=== PATIENT | female | born 1990 | race Caucasian/White ===

== ENCOUNTER 2020-09-21 01:04 | Inpatient (IN) | payer MEDICAID, OTHER ==
[2020-09-21] VITALS (13 sets, daily range): BP systolic 101–124; BP diastolic 57–81
[2020-09-21] MEDS ORDERED: ETOMIDATE INJ 20MG/10ML VIAL ONE (01:05)
[2020-09-21] MEDS ORDERED: ROCURONIUM BROMIDE 50 MG/5 ML VIAL ONE (01:05)
[2020-09-21] MEDS ORDERED: NS 1,000 ML IV ONE ×2 (01:30→16:30)
[2020-09-21] MEDS ORDERED: ETOMIDATE INJ 20MG/10ML VIAL IV STA (01:46)
[2020-09-21 01:54] LABS: ABG BASE EXCESS -8.6 (-2.0-2.0); ABG HCO3 16.4 MEQ/L (22.0-26.0); ABG O2 SATURATION 99.4 % (95.0-99.0); ABG PARTIAL PRESSURE CO2 32.9 mmHg (35.0-45.0); ABG PARTIAL PRESSURE O2 199.9 mmHg (75.0-100.0); ABG STANDARD HCO3 17.7 MEQ/L (22.0-26.0); ABG TOTAL CO2 17.4 MEQ/L (22.0-29.0); ABG pH (ARTERIAL) 7.316 UNITS (7.350-7.450)
[2020-09-21 01:54] LABS: BASO % 0.4 % (0.0-1.0); EOS # 0.1 10^3/uL (0.0-0.5); HEMATOCRIT 48.8 % (36.0-47.0); HEMOGLOBIN 15.7 g/dl (12.0-15.5); LYMPH % 28.5 % (24.0-44.0); MEAN CORPUSCULAR HEMOGLOBIN 27.2 pg (27.0-33.0); MEAN CORPUSCULAR HGB CONC 32.2 g/dl (32.0-36.5); MEAN CORPUSCULAR VOLUME 84.4 fl (80.0-96.0); MONO # 0.5 10^3/uL (0.0-0.8); NEUTROPHILS # 4.4 10^3/uL (1.5-8.5); NEUTROPHILS % 62.8 % (36.0-66.0); PLATELET COUNT, AUTOMATED 215 10^3/uL (150-450); RED BLOOD COUNT 5.78 10^6/uL (4.00-5.40)
[2020-09-21] MEDS ORDERED: ROCURONIUM BROMIDE 50 MG/5 ML VIAL IV SCH (02:00)
--- NOTE | 2020-09-21 02:01 | REPVR ---
PROCEDURE INFORMATION: Exam: XR Chest, 1 View Exam date and time: 09/21/2020 1:42 AM Age: 30 years old Clinical indication: Device placement; Ett placement (vent status); Additional info: Post intubation tube placement, and ng TECHNIQUE: Imaging protocol: XR of the chest Views: 1 view. COMPARISON: No relevant prior studies available. FINDINGS: Tubes, catheters and devices: Feeding tube in the stomach, tip is excluded. Endotracheal terminates 2.4 cm above the daria. Lungs: Right upper lobe and suprahilar ground-glass opacity. Pleural spaces: Unremarkable. No pleural effusion. No pneumothorax. Heart/Mediastinum: Unremarkable. Bones/joints: Unremarkable. IMPRESSION: Right upper lobe and suprahilar ground-glass opacity. Feeding tube in the stomach, tip is excluded. Endotracheal terminates 2.4 cm above the daria. Electronically signed by: Simeon Hudson On 09/21/2020 02:01:10 AM
[2020-09-21 02:25] LABS: AMPHETAMINES LEVEL URINE NEGATIVE (NEGATIVE); BARBITURATES URINE NEGATIVE (NEGATIVE); BENZODIAZEPINES URINE NEGATIVE (NEGATIVE); CANNABINOIDS URINE NEGATIVE (NEGATIVE); COCAINE METABOLITE URINE NEGATIVE (NEGATIVE); METHADONE URINE NEGATIVE (NEGATIVE); OPIATES URINE NEGATIVE (NEGATIVE); PHENCYCLIDINE URINE NEGATIVE (NEGATIVE)
[2020-09-21 02:39] LABS: HCG, SERUM QUALITATIVE NEGATIVE (NEGATIVE)
[2020-09-21] MEDS: propofoL 1,000 MG in IV 1 EA IV SCH ×5 (02:45→23:04)
[2020-09-21 03:22] LABS: RSV AMPLIFICATION NEGATIVE (NEGATIVE)
[2020-09-21 03:25] LABS: ACETAMINOPHEN LEVEL < 2.0 UG/ML (10.0-30.0); ALBUMIN 4.1 GM/DL (3.2-5.2); ALT/SGPT 22 U/L (12-78); BILIRUBIN,DIRECT < 0.1 MG/DL (0.0-0.2); BILIRUBIN,TOTAL 0.2 MG/DL (0.2-1.0); BLOOD UREA NITROGEN 7 MG/DL (7-18); CALCIUM LEVEL 8.3 MG/DL (8.5-10.1); CARBON DIOXIDE LEVEL 25 MEQ/L (21-32); CHLORIDE LEVEL 106 MEQ/L (98-107); CPK CREATINE PHOSPHOKINASE 86 U/L (26-192); CREATININE FOR GFR 0.71 MG/DL (0.55-1.30); ETHYL ALCOHOL (ETHANOL) 0.516 % (0.000-0.010); GLOMERULAR FILTRATION RATE > 60.0 (>60); GLUCOSE, FASTING 107 MG/DL (70-100); POTASSIUM SERUM 3.4 MEQ/L (3.5-5.1); SALICYLATE LEVEL 2.1 MG/DL (5.0-30.0); SODIUM LEVEL 139 MEQ/L (136-145); TOTAL PROTEIN 8.2 GM/DL (6.4-8.2)
[2020-09-21 03:39] LABS: ABG BASE EXCESS -8.7 (-2.0-2.0); ABG HCO3 15.7 MEQ/L (22.0-26.0); ABG O2 SATURATION 99.1 % (95.0-99.0); ABG PARTIAL PRESSURE CO2 30.4 mmHg (35.0-45.0); ABG PARTIAL PRESSURE O2 208.2 mmHg (75.0-100.0); ABG STANDARD HCO3 17.7 MEQ/L (22.0-26.0); ABG TOTAL CO2 16.7 MEQ/L (22.0-29.0); ABG pH (ARTERIAL) 7.332 UNITS (7.350-7.450)
[2020-09-21] MEDS ORDERED: MULTIVITAMIN -ADULT INJECTION 10 ML, THIAMINE INJection 100 MG, FOLIC ACID 1 MG in NS 1... IV ONE (04:30)
[2020-09-21] MEDS: IPRATROPIUM 0.5MG/ALBUTEROL 2.5MG INH SOL UD 3ML (DUONEB) NEB SCH ×3 (09:01→16:01)
--- NOTE | 2020-09-21 09:17 | HPE ---
HISTORY AND PHYSICAL/CRITICAL CARE NOTE DATE OF ADMISSION: 09/21/2020 START TIME: 749 STOP TIME: 833 HISTORY OF PRESENT ILLNESS: I was called to the ER to emergently attend Alla Lobo. The patient's admitting exam and chart reviewed and I spoke at length with the ER staff regarding her. In essence, this is a 30-year-old female heavily intoxicated after drinking all day yesterday. She was dropped off at a local police station by friends. In the ER she was unable to control her secretions and was therefore intubated. First blood gas had a pH of 7.316 with a pCO2 of 32.9, pO2 199. Chest x-ray showed OG tube and endotracheal tube in good position. She did not require vasopressors. I was called for admission. MEDICATIONS ADMINISTERED IN THE ER: 1. Multivitamins. 2. Propofol. 3. Norcuron. 4. Etomidate. No other history is able to be obtained. LIST OF HOME MEDICATIONS: Unobtainable. She has had no prior [facility] admissions. FAMILY HISTORY/SOCIAL HISTORY: Unobtainable. PHYSICAL EXAMINATION: GENERAL: A young female, intubated, sedated, mechanically ventilated. VITAL SIGNS: Heart rate 110, blood pressure 92 systolic. She breathes with the ventilator. HEENT: Pupils react. Sclerae are clear. Trachea is in the midline. Membranes are moist. CHEST: Chest is clear to both auscultation and percussion, symmetric expansion, No significant focal adventitious breath sounds are identified. Tactile fremitus palpable throughout. CARDIAC EXAM: Regular with no gallop. Peripheral pulses are palpable with no edema. ABDOMEN: Soft with active bowel sounds. No convincing organomegaly or masses. EXTREMITIES: Extremities without cyanosis or clubbing. NEUROLOGIC: She is sedate but does move all extremities when stimulated. Chest x-ray as outlined above. Most recent other laboratories show a blood gas done at 0321 has a pH of 7.332, pCO2 of 30.4, PaO2 208. Repeat done at 0648 has a pH of 7.347, pCO2 of 33.6, PaO2 of 199. Sodium 139, K 3.4, chloride 106, CO2 25, BUN 7, creatinine 0.71, glucose 107. White blood cell count is 7.0, hemoglobin 15.7, platelet count 215,000. No left shift. Tox screen shows an ETOH of 0.516. MOST PRESSING PROBLEMS REQUIRING MY PRESENCE AT THE BEDSIDE: 1. Respiratory failure secondary to heavy alcohol intoxication. 2. Alcohol intoxication. RECOMMENDATIONS: At this point she will be supported with IV fluids as well as mechanical ventilatory support for now and sedation as needed. My suspicion is either late today or more likely early tomorrow we will be able to extubate her. The issue at that point in time will be ascertaining whether or not she has a chronic issue. I see no evidence of aspiration. Ulcer and DVT prophylaxis are ordered. In view of the above, she is critically ill. We will facilitate moving to the Intensive Care Unit. YUNIEL
[2020-09-21 10:35] LABS: ABG BASE EXCESS -6.4 (-2.0-2.0); ABG HCO3 19.8 MEQ/L (22.0-26.0); ABG O2 SATURATION 95.6 % (95.0-99.0); ABG PARTIAL PRESSURE CO2 41.8 mmHg (35.0-45.0); ABG PARTIAL PRESSURE O2 87.8 mmHg (75.0-100.0); ABG STANDARD HCO3 19.3 MEQ/L (22.0-26.0); ABG TOTAL CO2 21.1 MEQ/L (22.0-29.0); ABG pH (ARTERIAL) 7.293 UNITS (7.350-7.450)
[2020-09-21] MEDS: CHLORHEXIDINE GLUCONATE 0.12 % 15ML UDC (PERIDEX ORAL RINSE) MT SCH ×2 (10:41→21:24)
[2020-09-21] MEDS: MIDAZOLAM INJ 2MG/2ML VIAL (J2250 PER 1MG) IV PRN ×7 (14:04→23:01)
[2020-09-21] MEDS: HEPARIN SOD (PORCINE) 5000UNITS/ML 1ML VIAL/SYRINGE SC SCH ×2 (14:10→21:24)
[2020-09-21] MEDS: KCL 20MEQ IN D5/0.45NS 1000ML 1,000 ML IV SCH ×2 (14:11→15:10)
[2020-09-21] MEDS ORDERED: REFRIGERATOR IV KEYS XX PRN (16:30)
[2020-09-21] MEDS ORDERED: MIDAZOLAM HCL 100 MG in D5W 80 ML IV SCH (17:00)
[2020-09-21] MEDS: OXAZEPAM 15 MG CAP PO SCH ×2 (17:08→21:24)
[2020-09-21] MEDS ORDERED: SODIUM CHLORIDE 0.9% 1000ML IV ONE (19:15)
[2020-09-21 21:30] LABS: ABG BASE EXCESS -7.6 (-2.0-2.0); ABG HCO3 16.8 MEQ/L (22.0-26.0); ABG O2 SATURATION 98.6 % (95.0-99.0); ABG PARTIAL PRESSURE CO2 31.2 mmHg (35.0-45.0); ABG PARTIAL PRESSURE O2 127.7 mmHg (75.0-100.0); ABG STANDARD HCO3 18.4 MEQ/L (22.0-26.0); ABG TOTAL CO2 17.8 MEQ/L (22.0-29.0); ABG pH (ARTERIAL) 7.349 UNITS (7.350-7.450)
[2020-09-21] MEDS: NS 1,000 ML IV SCH (23:00)
[2020-09-22] VITALS (18 sets, daily range): BP systolic 105–144; BP diastolic 62–84
[2020-09-22] MEDS: IPRATROPIUM 0.5MG/ALBUTEROL 2.5MG INH SOL UD 3ML (DUONEB) NEB SCH ×3 (00:27→07:30)
[2020-09-22] MEDS: MIDAZOLAM INJ 2MG/2ML VIAL (J2250 PER 1MG) IV PRN ×2 (00:49→05:14)
[2020-09-22] MEDS: propofoL 1,000 MG in IV 1 EA IV SCH ×3 (01:47→07:52)
[2020-09-22] MEDS: KCL 20MEQ IN D5/0.45NS 1000ML 1,000 ML IV SCH ×2 (01:52→16:48)
[2020-09-22 05:29] LABS: ABG BASE EXCESS -5.3 (-2.0-2.0); ABG HCO3 18.7 MEQ/L (22.0-26.0); ABG O2 SATURATION 98.2 % (95.0-99.0); ABG PARTIAL PRESSURE CO2 31.8 mmHg (35.0-45.0); ABG PARTIAL PRESSURE O2 116.6 mmHg (75.0-100.0); ABG STANDARD HCO3 20.1 MEQ/L (22.0-26.0); ABG TOTAL CO2 19.7 MEQ/L (22.0-29.0); ABG pH (ARTERIAL) 7.388 UNITS (7.350-7.450)
[2020-09-22 05:37] LABS: BASO % 0.2 % (0.0-1.0); HEMATOCRIT 35.5 % (36.0-47.0); LYMPH # 2.1 10^3/uL (1.5-5.0); LYMPH % 25.1 % (24.0-44.0); MEAN CORPUSCULAR HEMOGLOBIN 27.4 pg (27.0-33.0); MEAN CORPUSCULAR HGB CONC 31.5 g/dl (32.0-36.5); MEAN CORPUSCULAR VOLUME 86.8 fl (80.0-96.0); NEUTROPHILS # 5.2 10^3/uL (1.5-8.5); NEUTROPHILS % 62.5 % (36.0-66.0); PLATELET COUNT, AUTOMATED 170 10^3/uL (150-450); RED BLOOD COUNT 4.09 10^6/uL (4.00-5.40)
[2020-09-22 05:38] LABS: HEMOGLOBIN 11.2 g/dl (12.0-15.5); WHITE BLOOD COUNT 8.3 10^3/uL (4.0-10.0)
[2020-09-22 06:18] LABS: ALBUMIN 2.7 GM/DL (3.2-5.2); ALT/SGPT 23 U/L (12-78); BILIRUBIN,TOTAL 0.2 MG/DL (0.2-1.0); BLOOD UREA NITROGEN 6 MG/DL (7-18); CALCIUM LEVEL 6.8 MG/DL (8.5-10.1); CARBON DIOXIDE LEVEL 20 MEQ/L (21-32); CHLORIDE LEVEL 116 MEQ/L (98-107); CHOLESTEROL LEVEL 120 MG/DL (< 200); CPK CREATINE PHOSPHOKINASE 55 U/L (26-192); CREATININE FOR GFR 0.58 MG/DL (0.55-1.30); GLOMERULAR FILTRATION RATE > 60.0 (>60); GLUCOSE, FASTING 107 MG/DL (70-100); LDH LACTATE DEHYDROGENASE 164 U/L (84-246); PHOSPHORUS LEVEL 2.6 MG/DL (2.5-4.9); POTASSIUM SERUM 3.8 MEQ/L (3.5-5.1); SODIUM LEVEL 145 MEQ/L (136-145); TOTAL PROTEIN 5.8 GM/DL (6.4-8.2); TRIGLYCERIDES LEVEL 95 MG/DL (<150)
[2020-09-22] MEDS: HEPARIN SOD (PORCINE) 5000UNITS/ML 1ML VIAL/SYRINGE SC SCH (06:42)
[2020-09-22] MEDS: NS 1,000 ML IV SCH ×3 (06:42→18:25)
[2020-09-22] MEDS: OXAZEPAM 15 MG CAP PO SCH ×3 (06:42→21:04)
--- NOTE | 2020-09-22 07:58 | REP ---
INDICATION: resp failure COMPARISON: None. TECHNIQUE: Portable AP view of the chest FINDINGS: Endotracheal tube 2.5 cm above the daria. Nasogastric tube courses below left hemidiaphragm in satisfactory position. The mediastinum and cardiac silhouette are stable and within normal limits for portable technique. The lung devine are clear without acute consolidation, effusion, or pneumothorax. Skeletal structures are intact. IMPRESSION: No acute cardiopulmonary process appreciated. <Electronically signed by Anastacio Costa > 09/22/20 [id number]
--- NOTE | 2020-09-22 08:42 | ECGEPIP ---
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
[2020-09-22] MEDS ORDERED: FOLIC ACID 1 MG in NS 50 ML IV SCH ×2 (09:00→12:00)
[2020-09-22] MEDS ORDERED: THIAMINE 200MG/2ML VIAL (J3411 PER 100MG) IV SCH (09:00)
--- NOTE | 2020-09-22 09:52 | CCN ---
CRITICAL CARE NOTE DATE: 09/22/2020 START TIME: 0800 STOP TIME: 08 SUBJECTIVE: I again attended Alla Lobo here in the Intensive Care Unit. The patient has been examined, chart reviewed, and I have spoken at length with the nurse at the bedside. OBJECTIVE: Vital signs: T-max overnight 99.7, blood pressure 105 over 120s. Heart rate remains in the 120s with a sinus mechanism. She does over-breathe the ventilator. Input and output midnight to midnight: 3,823 mL in with 4,550 mL out. Her input since midnight is not accurately recorded. Other laboratories show a white blood cell count 8.3, hemoglobin 11.2, platelet count 170,000, 62% segs, no bands. Sodium 145, K 3.8, chloride 116, CO2 20, BUN 6, creatinine 0.58, glucose 107. Albumin 2.7. Blood gas done this morning had an SIMV 14, tidal volume 400, PEEP of 5, pressure support of 10 and FiO2 of 21%. She has a pH of 7.388, pCO2 31.8, PaO2 of 116.6. Chest x-ray done this morning shows the endotracheal tube to be in good position. There are no obvious infiltrates. On exam she is sedate. Pupils react. Sclerae clear. Trachea is in the midline. Chest is clear to both auscultation and percussion. No significant focal adventitious sounds identified. Cardiac exam remains tachycardic but regular. Peripheral pulses palpable, no edema. Abdomen is soft with active bowel sounds, no obvious organomegaly or masses. Extremities with no cyanosis or clubbing. Neurologically she is sedate. MOST PRESSING PROBLEM REQUIRING MY PRESENCE AT THE BEDSIDE: Respiratory failure secondary to profound alcohol intoxication. PLAN: At this point we will stop her sedation and allow her to wake up and hopefully be extubated. She did have a mild metabolic acidosis with some residual with that but has responded nicely to IV hydration. Certainly the diuretic effect of the alcohol she drank certainly complicated that. She was quite cool at the time of admission as well. My hope is that she will be cooperative when she is awakened. Due to what are obviously alcohol issues, we did start Serax yesterday as we have no adequate history of how much she drinks on a regular basis. She did receive thiamine with her first IV bag. Hopefully if she cooperative we will continue that as a dietary supplement for her. Hopefully when she is extubated, we can talk to her more as to what her usual habits are as given her young age, my hope is that if she has a significant issue, she is at least amenable to rehab. We will proceed as outlined above. I left the bedside at 0835 hours. Thirty five minutes of critical care time were spent at the bedside not including procedures. YUNIEL
--- NOTE | 2020-09-22 12:53 | IPNPDOC ---
Date Seen The patient was seen on 09/22/20. Progress Note SUBJECTIVE: Successfully extubated this AM, following commands but lethargic. Tachycardic, U/O 30-60 mL/Hr. Labs unremarkable. Denies chest pain, shortness of breath but complains of sore throat. OBJECTIVE: VITAL SIGNS: Please see below PHYSICAL EXAMINATION: VS: Please see below CONSTITUTIONAL: No acute distress, resting comfortably, AAO x 3 EYES: PERRLA, EOM intact HENT, MOUTH: Normocephalic, atraumatic, moist mucous membranes NECK: SUPPLE, no JVD, no lymphadenopathy, no carotid bruit CV: tachycardic, sinus rhythm, S1S2 normal, no murmurs/rubs/gallops RESPIRATORY: Clear to auscultation bilaterally, no rales/rhonchi/wheezes GI: BS positive in 4 quadrants, soft, nontender, nondistended, no rebound or guarding, no organomegaly : Deferred MUSCULOSKELETAL: Normal ROM. No cyanosis, clubbing, swelling, joint deformity, extremity edema INTEGUMENTARY: Intact, no rashes, no lesions, no erythema NEUROLOGIC: Cranial Nerves II-XII are intact, no focal deficits CURRENT MEDICATIONS: Please see below LABORATORY DATA: Please see below IMAGING: CXR 09/22/20: No acute CP process. ASSESSMENT: 30 y/o F admitted to ICU for acute respiratory failure 2/2 to alcohol intoxication, successfully extubated, monitoring closely for likely alcohol withdrawl and dehydration. PLAN: Respiratory failure secondary to heavy alcohol intoxication -Currently saturating well on aerosolized mask, FiO2 20% -ABG improved -Extubated 09/22/20 without complication -Lungs CTAB -Repeat CXR today, see above -Monitoring closely, continue to wean off. Can add levalbuterol PRN Alcohol withdrawl -On admission ETOH >0.5 -Tachycardic currently, HR up to 130's at times -C/w serax ATC, CIWA protocol: MV, thiamine and folate, ativan PRN -Tele Dehydration likely 2/2 to alcohol intoxication -C/w NS and D5 1/2 NSS with KCl for now -Repeat BMP this afternoon to discuss stopping one fluid -F/u labs DVT px -Lovenox DISPOSITION: Extubated today, still in ICU. Seems much improved. PT/OT likely , OOBTC, OOB with meals. TOTAL AMOUNT OF ICU TIME SPENT CARING FOR PATIENT (nonprocedural): 50 mins VS, I&O, 24H, Fishbone Vital Signs/I&O Vital Signs Date Time Temp Pulse Resp B/P (MAP) Pulse Ox O2 Delivery O2 Flow Rate FiO2 09/22/20 10:00 112 20 118/77 (91) 100 Aerosol Mask 5.0 28 09/22/20 08:00 98.6 I&O- Last 24 Hours up to 6 AM 09/22/20 05:59 Intake Total 3428 ml Output Total 2935 ml Balance 493 ml Laboratory Data 24H LABS Laboratory Tests 2 09/21/20 21:13: Blood Gas Bicarbonate Standard 18.4L, Arterial Blood pH 7.349L, Arterial Blood Partial Pressure CO2 31.2L, Arterial Blood Partial Pressure O2 127.7H, Arterial Blood Total CO2 17.8L, Arterial Blood HCO3 16.8L, Arterial Blood Base Excess - 7.6L, Arterial Blood Oxygen Saturation 98.6 09/22/20 05:10: Immature Granulocyte % (Auto) 0.2, Neutrophils (%) (Auto) 62.5, Lymphocytes (%) (Auto) 25.1, Monocytes (%) (Auto) 12.0H, Eosinophils (%) (Auto) 0.0, Basophils (%) (Auto) 0.2, Neutrophils # (Auto) 5.2, Lymphocytes # (Auto) 2.1, Monocytes # (Auto) 1.0H, Eosinophils # (Auto) 0.0, Basophils # (Auto) 0.0, Nucleated Red Blood Cells % (auto) 0.0, Anion Gap 9, Glomerular Filtration Rate > 60.0, Calcium Level 6.8#L, Phosphorus Level 2.6, Total Bilirubin 0.2, Aspartate Amino Transf (AST/SGOT) 13, Alanine Aminotransferase (ALT/SGPT) 23, Alkaline Phosp hatase 47, Lactate Dehydrogenase 164, Total Creatine Kinase 55, Total Protein 5.8#L, Albumin 2.7#L, Albumin/Globulin Ratio 0.9L, Triglycerides Level 95, Cholesterol Level 120 09/22/20 05:20: Blood Gas Bicarbonate Standard 20.1L, Arterial Blood pH 7.388, Arterial Blood Partial Pressure CO2 31.8L, Arterial Blood Partial Pressure O2 116.6H, Arterial Blood Total CO2 19.7L, Arterial Blood HCO3 18.7L, Arterial Blood Base Excess - 5.3L, Arterial Blood Oxygen Saturation 98.2 CBC/BMP Laboratory Tests 09/22/20 05:10 Current Medications Current Medications Medications (Trade) Dose Ordered Sig/Brien Route PRN Reason Start Time Stop Time Status Last Admin Dose Admin Albuterol/ Ipratropium (Duoneb (Ipr 0.5mg/Alb 2.5mg)) 3 ml RQ4H NEB 09/21/20 08:00 09/22/20 09:12 DC 09/22/20 07:30 Chlorhexidine Gluconate (Peridex Oral Rinse) 15 ml BID MT 09/21/20 09:00 09/22/20 09:47 DC 09/21/20 21:24 Etomidate (Amidate) 20 mg STAT STAT IV 09/21/20 01:46 09/21/20 01:48 DC 09/21/20 02:43 Folic Acid 1 mg/ Sodium Chloride 50.2 ml @ 100.4 mls/ hr Q24H IV 09/22/20 09:00 09/22/20 09:02 DC Folic Acid 1 mg/ Sodium Chloride 50.2 ml @ 100.4 mls/ hr Q24H IV 09/22/20 12:00 09/22/20 12:17 Heparin Sodium (Porcine) (Heparin) 5,000 units Q8H SC 09/21/20 14:00 09/22/20 06:42 Home Med (Med Rec Complete!) ASDIRECTED XX 09/21/20 02:00 09/21/20 01:51 DC Midazolam HCl (Versed) 2 mg Q15MP PRN IV AGITATION 09/21/20 08:30 09/22/20 09:47 DC 09/22/20 05:14 Midazolam HCl 100 mg/Dextrose 100 ml @ 6 mls/hr [id number] IV 09/21/20 17:00 09/22/20 08:29 DC 09/21/20 17:10 Non-Formulary Medication (Refrigerator Miramontes) Q1M PRN XX SEE LABEL COMMENTS 09/21/20 16:30 09/22/20 09:47 DC Oxazepam (Serax) 15 mg Q8H PO 09/21/20 14:00 09/22/20 06:42 Potassium Chloride/Dextrose/ Sod Cl 1,000 ml @ 150 mls/hr Q6H40M IV 09/21/20 08:30 09/22/20 01:52 Propofol 1000 mg/ IV Miscellaneous Supplies 100 ml @ 20.9 mls/hr Q4H48M IV 09/21/20 02:00 09/21/20 19:00 DC 09/21/20 23:00 Propofol 1000 mg/ IV Miscellaneous Supplies 100 ml @ 30 mls/hr Q3H20M IV 09/21/20 19:00 09/22/20 08:29 DC 09/22/20 07:52 Rocuronium [place] (Zemuron) 80 mg ASDIRECTED IV 09/21/20 02:00 09/21/20 07:44 DC 09/21/20 02:44 Sodium Chloride 1,000 ml @ 150 mls/hr Q6H40M IV 09/21/20 22:00 09/22/20 12:15 Thiamine HCl (VITAMIN B1 INJection) 100 mg DAILY IV 09/22/20 09:00 09/22/20 10:56 Allergies Coded Allergies: Unable to Assess (Verified Allergy, Unknown, 09/21/20) Dasia Martinez MD Sep 22, 2020 12:53
[2020-09-22] MEDS ORDERED: LORazepam 2 MG TAB PO PRN (13:00)
[2020-09-22 13:40] LABS: INR 1.18; PROTHROMBIN TIME 15.3 SECONDS (12.5-14.3)
[2020-09-22 13:41] LABS: PARTIAL THROMBOPLASTIN TIME 35.6 SECONDS (24.2-38.5)
[2020-09-22] MEDS: MULTIVITAMINS/MINERALS THERAP 1 TAB PO SCH (14:17)
[2020-09-22 15:29] LABS: BLOOD UREA NITROGEN 3 MG/DL (7-18); CALCIUM LEVEL 7.4 MG/DL (8.5-10.1); CARBON DIOXIDE LEVEL 24 MEQ/L (21-32); CHLORIDE LEVEL 115 MEQ/L (98-107); CREATININE FOR GFR 0.46 MG/DL (0.55-1.30); GLOMERULAR FILTRATION RATE > 60.0 (>60); GLUCOSE, FASTING 107 MG/DL (70-100); POTASSIUM SERUM 3.8 MEQ/L (3.5-5.1); SODIUM LEVEL 145 MEQ/L (136-145)
[2020-09-22] MEDS: ENOXAPARIN 40MG/0.4ML SYRINGE (J1650 PER 10MG) SC SCH (21:00)
[2020-09-22] MEDS: THIAMINE 100 MG TAB PO SCH (21:04)
[2020-09-23] MEDS: NS 1,000 ML IV SCH (05:26)
[2020-09-23] MEDS: OXAZEPAM 15 MG CAP PO SCH (05:26)
[2020-09-23 05:27] VITALS: BP 136/80
[2020-09-23 06:00] VITALS: BP 136/88
[2020-09-23 06:31] LABS: BASO % 0.7 % (0.0-1.0); EOS # 0.2 10^3/uL (0.0-0.5); EOS % 4.2 % (0.0-3.0); HEMATOCRIT 37.2 % (36.0-47.0); HEMOGLOBIN 11.7 g/dl (12.0-15.5); LYMPH # 1.6 10^3/uL (1.5-5.0); LYMPH % 35.6 % (24.0-44.0); MEAN CORPUSCULAR HEMOGLOBIN 27.4 pg (27.0-33.0); MEAN CORPUSCULAR HGB CONC 31.5 g/dl (32.0-36.5); MEAN CORPUSCULAR VOLUME 87.1 fl (80.0-96.0); MONO # 0.4 10^3/uL (0.0-0.8); MONO % 8.8 % (0.0-5.0); NEUTROPHILS # 2.3 10^3/uL (1.5-8.5); NEUTROPHILS % 50.5 % (36.0-66.0); PLATELET COUNT, AUTOMATED 168 10^3/uL (150-450); RED BLOOD COUNT 4.27 10^6/uL (4.00-5.40); WHITE BLOOD COUNT 4.5 10^3/uL (4.0-10.0)
[2020-09-23 06:59] LABS: ALBUMIN 3.1 GM/DL (3.2-5.2); ALT/SGPT 22 U/L (12-78); BILIRUBIN,TOTAL 0.3 MG/DL (0.2-1.0); BLOOD UREA NITROGEN 3 MG/DL (7-18); CALCIUM LEVEL 7.9 MG/DL (8.5-10.1); CARBON DIOXIDE LEVEL 26 MEQ/L (21-32); CHLORIDE LEVEL 113 MEQ/L (98-107); CHOLESTEROL LEVEL 150 MG/DL (< 200); CPK CREATINE PHOSPHOKINASE 95 U/L (26-192); CREATININE FOR GFR 0.51 MG/DL (0.55-1.30); GLOMERULAR FILTRATION RATE > 60.0 (>60); GLUCOSE, FASTING 91 MG/DL (70-100); LDH LACTATE DEHYDROGENASE 172 U/L (84-246); POTASSIUM SERUM 3.4 MEQ/L (3.5-5.1); SODIUM LEVEL 146 MEQ/L (136-145); TOTAL PROTEIN 6.5 GM/DL (6.4-8.2); TRIGLYCERIDES LEVEL 97 MG/DL (<150)
[2020-09-23] MEDS: THIAMINE 100 MG TAB PO SCH ×2 (08:27→20:19)
[2020-09-23] MEDS: MULTIVITAMINS/MINERALS THERAP 1 TAB PO SCH (08:27)
[2020-09-23] MEDS: FOLIC ACID 1 MG TAB PO SCH (08:27)
[2020-09-23 08:30] VITALS: BP 131/84
[2020-09-23] MEDS ORDERED: POTASSIUM CHLORIDE 10 MEQ SR TABLET PO ONE (09:30)
[2020-09-23 14:00] VITALS: BP 109/57
--- NOTE | 2020-09-23 16:47 | IPNPDOC ---
Date Seen The patient was seen on 09/23/20. Progress Note SUBJECTIVE: Stopped serax this AM and will see how tolerates throughout day. Low potassium was replaced. U/o stable, encouraging walking today. Denies chest pain, shortness of breath but complains of sore throat. OBJECTIVE: VITAL SIGNS: Please see below PHYSICAL EXAMINATION: VS: Please see below CONSTITUTIONAL: No acute distress, resting comfortably, AAO x 3 EYES: PERRLA, EOM intact HENT, MOUTH: Normocephalic, atraumatic, moist mucous membranes NECK: SUPPLE, no JVD, no lymphadenopathy, no carotid bruit CV: tachycardic, sinus rhythm, S1S2 normal, no murmurs/rubs/gallops RESPIRATORY: Clear to auscultation bilaterally, no rales/rhonchi/wheezes GI: BS positive in 4 quadrants, soft, nontender, nondistended, no rebound or guarding, no organomegaly : Deferred MUSCULOSKELETAL: Normal ROM. No cyanosis, clubbing, swelling, joint deformity, extremity edema INTEGUMENTARY: Intact, no rashes, no lesions, no erythema NEUROLOGIC: Cranial Nerves II-XII are intact, no focal deficits CURRENT MEDICATIONS: Please see below LABORATORY DATA: Please see below IMAGING: CXR 09/22/20: No acute CP process. ASSESSMENT: 30 y/o F admitted to ICU for acute respiratory failure 2/2 to alcohol intoxication, successfully extubated, monitoring closely for likely alcohol withdrawl and dehydration. PLAN: Respiratory failure secondary to heavy alcohol intoxication- resolved -Currently saturating well on RA, no difficulty breathing -Extubated 09/22/20 without complication -Lungs CTAB Alcohol withdrawl, improving -D/cing serax and will see how she does with only ativan PRN -On admission ETOH >0.5 -HR currently stable, does not show s/s of withdrawl currently -C/w CIWA protocol: MV, thiamine and folate, ativan PRN -Tele Hypokalemia, acute -Replaced 30 mEq -F/u AM labs Hypophosphatemia, acute -Replaced Dehydration likely 2/2 to alcohol intoxication- resolved -D/cindy IVFs. DVT px -Lovenox DISPOSITION: Encouraging ambulation. If does well without serax, no incr s/s of withdrawl can likely d/c 09/24/20. VS, I&O, 24H, [place] Vital Signs/I&O Vital Signs Date Time Temp Pulse Resp B/P (MAP) Pulse Ox O2 Delivery O2 Flow Rate FiO2 09/23/20 14:00 78 109/57 09/23/20 14:00 97.8 19 100 Room Air 09/22/20 11:00 5.0 28 I&O- Last 24 Hours up to 6 AM 09/23/20 05:59 Intake Total 3710.2 ml Output Total 3975 ml Balance -264.8 ml Laboratory Data 24H LABS Laboratory Tests 2 09/23/20 05:50: Immature Granulocyte % (Auto) 0.2, Neutrophils (%) (Auto) 50.5, Lymphocytes (%) (Auto) 35.6, Monocytes (%) (Auto) 8.8H, Eosinophils (%) (Auto) 4.2H, Basophils (%) (Auto) 0.7, Neutrophils # (Auto) 2.3, Lymphocytes # (Auto) 1.6, Monocytes # (Auto) 0.4, Eosinophils # (Auto) 0.2, Basophils # (Auto) 0.0, Nucleated Red Bl ood Cells % (auto) 0.0, Anion Gap 7L, Glomerular Filtration Rate > 60.0, Calcium Level 7.9L, Phosphorus Level 2.0#L, Total Bilirubin 0.3, Aspartate Amino Transf (AST/SGOT) 11, Alanine Aminotransferase (ALT/SGPT) 22, Alkaline Phosphatase 55, Lactate Dehydrogenase 172, Total Creatine Kinase 95, Total Protein 6.5, Albumin 3.1L, Albumin/Globulin Ratio 0.9L, Triglycerides Level 97, Cholesterol Level 150 CBC/BMP Laboratory Tests 09/23/20 05:50 Current Medications Current Medications Medications (Trade) Dose Ordered Sig/Brien Route PRN Reason Start Time Stop Time Status Last Admin Dose Admin Albuterol/ Ipratropium (Duoneb (Ipr 0.5mg/Alb 2.5mg)) 3 ml RQ4H NEB 09/21/20 08:00 09/22/20 09:12 DC 09/22/20 07:30 Chlorhexidine Gluconate (Peridex Oral Rinse) 15 ml BID MT 09/21/20 09:00 09/22/20 09:47 DC 09/21/20 21:24 Enoxaparin Sodium (Lovenox) 40 mg DAILY@2100 SC 09/22/20 21:00 Etomidate (Amidate) 20 mg STAT STAT IV 09/21/20 01:46 09/21/20 01:48 DC 09/21/20 02:43 Folic Acid (Folic Acid) 1 mg DAILY PO 09/23/20 09:00 09/23/20 08:27 Folic Acid 1 mg/ Sodium Chloride 50.2 ml @ 100.4 mls/ hr Q24H IV 09/22/20 09:00 09/22/20 09:02 DC Folic Acid 1 mg/ Sodium Chloride 50.2 ml @ 100.4 mls/ hr Q24H IV 09/22/20 12:00 09/22/20 16:52 DC 09/22/20 12:17 Heparin Sodium (Porcine) (Heparin) 5,000 units Q8H SC 09/21/20 14:00 09/22/20 12:52 DC 09/22/20 06:42 Home Med (Med Rec Complete!) ASDIRECTED XX 09/21/20 02:00 09/21/20 01:51 DC Lorazepam (Ativan) 2 mg ASDIRECTED PRN PO SEE PROTOCOL 09/22/20 13:00 Midazolam HCl (Versed) 2 mg Q15MP PRN IV AGITATION 09/21/20 08:30 09/22/20 09:47 DC 09/22/20 05:14 Midazolam HCl 100 mg/Dextrose 100 ml @ 6 mls/hr [id number] IV 09/21/20 17:00 09/22/20 08:29 DC 09/21/20 17:10 Multivitamins (Theragram-M) 1 tab DAILY PO 09/22/20 09:00 09/23/20 08:27 Non-Formulary Medication (Refrigerator Miramontes) Q1M PRN XX SEE LABEL COMMENTS 09/21/20 16:30 09/22/20 09:47 DC Oxazepam (Serax) 15 mg Q8H PO 09/21/20 14:00 09/23/20 09:11 DC 09/23/20 05:26 Potassium Chloride/Dextrose/ Sod Cl 1,000 ml @ 150 mls/hr Q6H40M IV 09/21/20 08:30 09/22/20 16:52 DC 09/22/20 16:48 Propofol 1000 mg/ IV Miscellaneous Supplies 100 ml @ 20.9 mls/hr Q4H48M IV 09/21/20 02:00 09/21/20 19:00 DC 09/21/20 23:00 Propofol 1000 mg/ IV Miscellaneous Supplies 100 ml @ 30 mls/hr Q3H20M IV 09/21/20 19:00 09/22/20 08:29 DC 09/22/20 07:52 Rocuronium [place] (Zemuron) 80 mg ASDIRECTED IV 09/21/20 02:00 09/21/20 07:44 DC 09/21/20 02:44 Sodium Chloride 1,000 ml @ 85 mls/hr [id number] IV 09/21/20 22:00 09/23/20 09:11 DC 09/23/20 05:26 Thiamine HCl (Thiamine HCl) 100 mg BID PO 09/22/20 21:00 09/25/20 09:01 09/23/20 08:27 Thiamine HCl (VITAMIN B1 INJection) 100 mg DAILY IV 09/22/20 09:00 09/22/20 16:52 DC 09/22/20 10:56 Allergies Coded Allergies: Unable to Assess (Verified Allergy, Unknown, 09/21/20) Dasia Martinez MD Sep 23, 2020 16:47
[2020-09-23] MEDS ORDERED: K-PHOS NEUTRAL 250MG TABLET (SOD.PHOSPHATE/POT.PHOSPHATE) PO ONE (17:00)
[2020-09-23] MEDS: ENOXAPARIN 40MG/0.4ML SYRINGE (J1650 PER 10MG) SC SCH (20:18)
[2020-09-23 22:00] VITALS: BP 128/79
[2020-09-24 06:00] VITALS: BP 127/84
[2020-09-24 06:30] LABS: BASO % 0.3 % (0.0-1.0); EOS # 0.2 10^3/uL (0.0-0.5); EOS % 3.8 % (0.0-3.0); HEMATOCRIT 39.6 % (36.0-47.0); HEMOGLOBIN 12.7 g/dl (12.0-15.5); LYMPH # 1.4 10^3/uL (1.5-5.0); LYMPH % 35.2 % (24.0-44.0); MEAN CORPUSCULAR HEMOGLOBIN 27.6 pg (27.0-33.0); MEAN CORPUSCULAR HGB CONC 32.1 g/dl (32.0-36.5); MEAN CORPUSCULAR VOLUME 86.1 fl (80.0-96.0); MONO # 0.4 10^3/uL (0.0-0.8); MONO % 9.9 % (0.0-5.0); NEUTROPHILS % 50.5 % (36.0-66.0); PLATELET COUNT, AUTOMATED 169 10^3/uL (150-450)
[2020-09-24 06:52] LABS: ALBUMIN 3.2 GM/DL (3.2-5.2); ALT/SGPT 23 U/L (12-78); BILIRUBIN,TOTAL 0.3 MG/DL (0.2-1.0); BLOOD UREA NITROGEN 3 MG/DL (7-18); CALCIUM LEVEL 8.3 MG/DL (8.5-10.1); CARBON DIOXIDE LEVEL 29 MEQ/L (21-32); CHLORIDE LEVEL 109 MEQ/L (98-107); CHOLESTEROL LEVEL 180 MG/DL (< 200); CPK CREATINE PHOSPHOKINASE 58 U/L (26-192); GLOMERULAR FILTRATION RATE > 60.0 (>60); GLUCOSE, FASTING 91 MG/DL (70-100); LDH LACTATE DEHYDROGENASE 158 U/L (84-246); PHOSPHORUS LEVEL 4.1 MG/DL (2.5-4.9); SODIUM LEVEL 144 MEQ/L (136-145); TOTAL PROTEIN 6.3 GM/DL (6.4-8.2); TRIGLYCERIDES LEVEL 65 MG/DL (<150)
[2020-09-24] MEDS: MULTIVITAMINS/MINERALS THERAP 1 TAB PO SCH (08:40)
[2020-09-24] MEDS: THIAMINE 100 MG TAB PO SCH (08:41)
[2020-09-24] MEDS: FOLIC ACID 1 MG TAB PO SCH (08:41)
--- NOTE | 2020-09-24 19:15 | DS.PDOC ---
Discharge Summary General Date of Admission Sep 21, 2020 at 08:20 Date of Discharge 09/24/20 Attending Physician: Dasia Martinez MD Discharge Summary HPI: Patient is a 30-year-old F with no significant medical history who was admitted on 09/21/20 after being found heavily intoxicated after drinking all day yesterday. She was dropped off at a local police station by friends. In the ER she was unable to control her secretions and was therefore intubated. First blood gas had a pH of 7.316 with a pCO2 of 32.9, pO2 199. ETOH level 0.5. Chest x-ray showed OG tube and endotracheal tube in good position. She did not require vasopressors. No additional history was obtained due to her obtuntion and later sedation. She was admitted to ICU under Dr. Langford for acute respiratory failure 09/15 to alcohol intoxication. HOSPITAL COURSE: Patient did well with weaning trial on 09/22/20 and was extubated successfully. She had tachycardia initially, she was kept on serax ATC, CIWA protocol. PT/OT was ordered and she did well. Electrolytes were replaced and U/O stable. Appetite improved as did strength, mentation. By 09/24/20 patient had been off of the serax for 24 hours, she had no s/s of worsening alcohol withdrawl. She denies alcohol abuse but was given alcohol cessation counselling by myself. She will be discharged today to f/u with her PCP and avoid alcohol use in future. PMH/ PAST SURGICAL HISTORY/ SOCIAL HISTORY/ FAMILY HISTORY: not obtained on admission due to obtunded state DISCHARGE MEDICATIONS: Please see below PHYSICAL EXAMINATION: VS: Please see below CONSTITUTIONAL: No acute distress, resting comfortably, AAO x 3 EYES: PERRLA, EOM intact HENT, MOUTH: Normocephalic, atraumatic, moist mucous membranes NECK: SUPPLE, no JVD, no lymphadenopathy, no carotid bruit CV: tachycardic, sinus rhythm, S1S2 normal, no murmurs/rubs/gallops RESPIRATORY: Clear to auscultation bilaterally, no rales/rhonchi/wheezes GI: BS positive in 4 quadrants, soft, nontender, nondistended, no rebound or guarding, no organomegaly : Deferred MUSCULOSKELETAL: Normal ROM. No cyanosis, clubbing, swelling, joint deformity, extremity edema INTEGUMENTARY: Intact, no rashes, no lesions, no erythema NEUROLOGIC: Cranial Nerves II-XII are intact, no focal deficits CURRENT MEDICATIONS: Please see below LABORATORY DATA: Please see below IMAGING: CXR 09/22/20: No acute CP process. ASSESSMENT: 30 y/o F admitted to ICU for acute respiratory failure 2/2 to alcohol intoxication, successfully extubated, monitoring closely for likely alcohol withdrawl and dehydration. PLAN: Respiratory failure secondary to heavy alcohol intoxication- resolved -Currently saturating well on RA, no difficulty breathing -Extubated 09/22/20 without complication -Lungs CTAB Alcohol withdrawl- resolved -On admission ETOH >0.5 -HR currently stable, does not show s/s of withdrawl currently -Alcohol cessation counselling given Hypokalemia, acute- resolved Hypophosphatemia, acute- resolved Dehydration likely 2/2 to alcohol intoxication- resolved -D/cindy IVFs. DISPOSITION: Discharge today to follow up with PCP. Alcohol cessation counselling provided to patient. TIME SPENT ON DISCHARGE: 35 minutes. Vital Signs/I&Os Vital Signs Date Time Temp Pulse Resp B/P (MAP) Pulse Ox O2 Delivery O2 Flow Rate FiO2 09/24/20 06:00 97.4 78 20 127/84 (98) 99 09/23/20 14:00 Room Air 09/22/20 11:00 5.0 28 I&O- Last 24 Hours up to 6 AM 09/24/20 05:59 Intake Total 3560 ml Output Total 500 ml Balance 3060 ml Laboratory Data Labs 24H Laboratory Tests 2 09/24/20 06:13: Immature Granulocyte % (Auto) 0.3, Neutrophils (%) (Auto) 50.5, Lymphocytes (%) (Auto) 35.2, Monocytes (%) (Auto) 9.9H, Eosinophils (%) (Auto) 3.8H, Basophils (%) (Auto) 0.3, Neutrophils # (Auto) 2.0, Lymphocytes # (Auto) 1.4L, Monocytes # (Auto) 0.4, Eosinophils # (Auto) 0.2, Basophils # (Auto) 0.0, Nucleated Red Blood Cells % (auto) 0.0, Anion Gap 6L, Glomerular Filtration Rate > 60.0, Calcium Level 8.3L, Phosphorus Level 4.1#, Total Bilirubin 0.3, Aspartate Amino Transf (AST/SGOT) 10, Alanine Aminotransferase (ALT/SGPT) 23, Alkaline Phosphatase 55, Lactate Dehydrogenase 158, Total Creatine Kinase 58, Total Protein 6.3L, Albumin 3.2, Albumin/Globulin Ratio 1.0L, Triglycerides Level 65, Cholesterol Level 180 CBC/BMP Laboratory Tests 09/24/20 06:13 Discharge Medications Unable to Obtain Active Prescriptions or Reported Meds Allergies Coded Allergies: Unable to Assess (Verified Allergy, Unknown, 09/21/20) Dasia Martinez MD Sep 24, 2020 19:15
== END 2020-09-24 11:35 | disposition home or self-care (01) | DRG 133 ==
LOC: M ED 01:04 → EDBD 01:04 → M ED INP 08:20 → M PCU 09:27 → M MSPAV 09-22 18:39
PROVIDERS: ADMIT Internal Medicine Pulmonary Disease; ATTEND Internal Medicine
PROC: 0BH17EZ Insertion of Endotracheal Airway into Trachea, Via Natural or Artificial Opening (ICD-10-PCS; principal; 2020-09-21)
PROC: 5A1945Z Respiratory Ventilation, 24-96 Consecutive Hours (ICD-10-PCS; 2020-09-21)
DX: J96.00 Acute respiratory failure, unspecified whether with hypoxia or hypercapnia (principal); E87.2 Acidosis; E86.0 Dehydration; F10.129 Alcohol abuse with intoxication, unspecified; F10.139 Alcohol abuse with withdrawal, unspecified; E87.6 Hypokalemia; R00.0 Tachycardia, unspecified